=== PATIENT | female | born 1975 | race Caucasian/White ===

== ENCOUNTER 2016-09-24 03:56 | Inpatient (IN) | payer OTHER ==
[~2016-09-24] VITALS: Ht 165.1 cm; Wt 88.9 kg
[2016-09-24] MEDS ORDERED: BETAMET NA PHOS/AC(6 MG/ML) 5ML INJ IM SCH (04:30)
[2016-09-24] MEDS ORDERED: MAGNESIUM SULFATE 4 GM/100 ML 100 ML ONE (04:30)
[2016-09-24] MEDS ORDERED: MAGNESIUM SULFATE 4 GM/100 ML 100 ML IV ONE (04:30)
[2016-09-24] MEDS: LACTATED RINGER'S 1,000 ML IV SCH ×2 (04:36→14:27)
[2016-09-24] MEDS ORDERED: MAGNESIUM SULFATE 20 GM/500 ML 500 ML IV SCH ×2 (05:00→10:03)
--- NOTE | 2016-09-24 05:00 | RADRPT ---
PROCEDURE: Biophysical profile. CLINICAL INDICATION: Vaginal bleeding. TECHNIQUE: Multiple sonographic images of the pelvis were obtained with transabdominal technique. COMPARISON: No prior studies are available for comparison. FINDINGS: There is a single living intrauterine gestation with the fetus in a vertex position. The placenta i s posterior and fundal in location grade II to III. heart tones of 128 beats per minute are id entified. There is normal amniotic fluid volume with an MARIUM of 18.0 cm. breathing movements = 2 Gross body movements = 2 tone = 2 Qualitative AFV = 2 IMPRESSION: Biophysical profile 8 out of 8. .Augustine Mccall MD, MD Date Time Electronically viewed and signed by .Augustine Mccall MD, MD on 09/24/2016 05:00 .T/
--- NOTE | 2016-09-24 05:03 | RADRPT ---
PROCEDURE: Obstetrical ultrasound, limited. CLINICAL INDICATION: Pelvic pain. TECHNIQUE: Multiple sonographic images of the pelvis were obtained using transabdominal technique . Images were obtained with galaviz scale and color Doppler. The images were reviewed on a PACS works tation. COMPARISON: No prior studies are available for comparison. FINDINGS: There is a single living intrauterine gestation with the fetus in a vertex presentation. hear t tones of 139 beats per minute are identified. The placenta is posterior and fundal in location, g rade 2-3. There is normal amniotic fluid volume. There is no evidence of placenta previa or abrupt ion. Measurements were made in order to determine age. The results are as follows: BPD =7.95 cm HC =30.32 cm AC =30.64 cm FL =6.84 cm. Estimated gestational age of approximately 33 weeks and 6 days. The estimated date of delivery is 11/06/2016. The EFW = 2412 +/- 362 grams. Estimated weight percentage equals 23.3%. IMPRESSION: Single viable intrauterine gestation of approximately 33 weeks and 6 days, with an ultrasound [place] of 11/06/2016. .Augustine Mccall MD, MD Date Time Electronically viewed and signed by .Augustine Mccall MD, MD on 09/24/2016 05:02 .T/
[2016-09-24 05:44] VITALS: BP 116/69; PULSE 100; RESP 20; Ht 165.1 cm; Wt 88.9 kg
[2016-09-24] MEDS ORDERED: DEXTROSE 50% 50 ML SYRINGE IV PRN ×2 (06:30)
[2016-09-24] MEDS ORDERED: GLUCOSE GEL 15 GRAM TUBE BUCCAL PRN (06:30)
[2016-09-24] MEDS ORDERED: GLUCOSE GEL 15 GRAM TUBE PO PRN ×2 (06:30)
[2016-09-24] MEDS ORDERED: GLUCAGON 1 MG INJ IM PRN (06:30)
[2016-09-24 06:36] LABS: ADD SCAN DIFF NO
[2016-09-24 06:39] LABS: BASOPHILS % 0.3 % (0.0-2.0); EOSINOPHILS # 0.3 10^3/ul (0.0-0.5); EOSINOPHILS % 3.4 % (0.0-7.0); HEMATOCRIT 35.1 % (37.0-47.0); HEMOGLOBIN 11.4 g/dl (12.0-16.0); LYMPHOCYTES # 1.5 10^3/ul (0.8-2.9); LYMPHOCYTES % 16.9 % (15.0-51.0); MEAN CORPUSCULAR HEMOGLOBIN 27.1 pg (29.0-33.0); MEAN CORPUSCULAR HGB CONC 32.5 g/dl (32.0-37.0); MEAN CORPUSCULAR VOLUME 83.4 fl (82.0-101.0); MEAN PLATELET VOLUME 10.6 fl (7.4-10.4); MONOCYTE # 0.5 10^3/ul (0.3-0.9); NEUTROPHIL # 6.5 10^3/ul (1.6-7.5); NEUTROPHILS % 72.5 % (39.0-77.0); PLATELET COUNT 322 10^3/UL (140-415); RED BLOOD COUNT 4.21 10^6/ul (4.20-5.40); RED CELL DISTRIBUTION WIDTH 15.8 % (11.5-14.5)
--- NOTE | 2016-09-24 06:40 | HP ---
Date/Time of Note Date/Time of Note DATE: 09/24/16 TIME: 06:32 OB - History Hx of Present Free Text/Dictation Patient is at 35 weeks and 2 days gestation presents with vaginal bleeding and irregular contractions She is type II diabetic insulin-dependent Patient with history of placenta previa Patient received a course of betamethasone earlier in this Care: Good Care Obstetrical Complications: Other (type ll diabetes insulin-dependent) Medical Complications: None Past Family/Social History * Past Medical, Surgical, Family and Obstetric Histories reviewed from chart. OB Admission Exam Vital Signs Vital Signs Vital Signs Date Time Temp Pulse Resp B/P Pulse Ox O2 Delivery O2 Flow Rate FiO2 09/24/16 05:44 98.3 100 20 116/69 99 Room Air Physical Exam HEENT: WNL Heart: Rhythm Normal Abdomen: WNL Membranes: Intact Accelerations: Accelerations Present Decelerations: No Decelerations Varibility: Moderate Contractions on Admission: 6-10 Minutes Apart Last 72 hourBlood Glucose Bedside Glucose - 72 Hours Test 09/24/16 05:55 Bedside Glucose 88mg/dL (70-220) OB Assessment/Plan Reason for admission: vaginal bleeding Plan: Other Other plan: Magnesium sulfate OB ultrasound-indicating no further evidence of placenta previa Fasting and one hour postprandial Accu-Cheks sliding scale insulin ROGER FAULKNER Sep 24, 2016 06:40
[2016-09-24 06:54] LABS: INR 0.91; PROTIME 12.3 Sec (12.2-14.2)
[2016-09-24 06:55] LABS: PARTIAL THROMBOPLASTIN TIME 29.3 Sec (25.0-35.0)
--- NOTE | 2016-09-24 07:06 | TRIAGE ---
OB Triage Datetime Report Generated by CPN: 09/24/2016 07:05 Datetime: 09/24/2016 06:00 Assessment Type: Admission Assessment Vaginal Bleeding: Small (Annotations: PT NOTED VAGINAL BLEEDING ON 09/24/16 @ 0320) Maternal Assessment Level of Consciousness: Fully Conscious DTR's/Clonus: DTRs 2+; No Clonus Headache: Denies Blurred Vision: No Respiratory Effort: Unlabored; Regular Rhythm; Equal Expansion Breath Sounds, Left: Clear and Equal Breath Sounds, Right: Clear and Equal Nausea/Vomiting: Denies RUQ Epigastric Pain: Denies Lower Extremities Edema: None Degree: None Upper Extremities Edema: None Degree: None Facial Edema: None Fall Risk Assessment History of Falling: (0) No Secondary Diagnosis: (0) No Ambulatory Aid: (0) Bedrest/Nurse Assist IV Therapy: (20) Yes Gait: (0) Normal/Bedrest/Immobile Mental Status: (0) Oriented to Own Ability Fall Score: 20 Fall Risk Score Definition: No Risk: No action required Pain Assessment Pain Scale: 0 Pain Presence: None/Denies Pain Type: N/A Datetime: 09/24/2016 05:55 Bedside Blood Glucose: 88 Datetime: 09/24/2016 05:44 Stage of : Antepartum Datetime: 09/24/2016 05:29 Labor Evaluation Frequency: 0 Monitor Mode: External Duration (sec)2399: 0 Resting Tone [place]: Relaxed Contraction Comments: uterine irritiability noted. pt denies feeling cramping or uc's. Heart Rate FHR Baseline Rate: 125 Monitor Mode: External US Variability: Moderate 6-25 bpm Accelerations: 15X15 Decelerations: None Category: Category I Datetime: 09/24/2016 04:30 Stage of : OB Triage Assessment Type: Triage Time of Arrival: 09/24/2016 03:51 EGA: 35.2 Arrived By: Ambulatory Arrived From: Home Chief Complaint: vaginal bleeding Movement: Present Contractions: Denies/Absent Rupture of Membranes: Denies Vaginal Bleeding: Moderate Vaginal Discharge: Denies Recent Sexual Intercouse: Denies Abdominal Trauma: Not Applicable Patient Complaints: Other Time Provider Notified: 09/24/2016 04:18 Provider Notified: Мария Initial Plan: NST Maternal Assessment Level of Consciousness: Fully Conscious DTR's/Clonus: DTRs 2+; No Clonus Headache: Denies Blurred Vision: No Respiratory Effort: Unlabored Nausea/Vomiting: Denies RUQ Epigastric Pain: Denies Lower Extremities Edema: None Degree: None Upper Extremities Edema: None Degree: None Facial Edema: None Fall Risk Assessment History of Falling: (0) No Secondary Diagnosis: (0) No Ambulatory Aid: (0) Bedrest/Nurse Assist IV Therapy: (20) Yes Gait: (0) Normal/Bedrest/Immobile Mental Status: (0) Oriented to Own Ability Fall Score: 20 Fall Risk Score Definition: No Risk: No action required Monitor Mode: External Resting Tone [place]: Non Relaxed Contraction Comments: continuous uterine irritiability. pt states she does not feel any pressure o r tightness. Heart Rate FHR Baseline Rate: 125 Monitor Mode: External US Variability: Moderate 6-25 bpm Accelerations: 15X15 Decelerations: None Category: Category I Datetime: 09/24/2016 04:25 Vaginal Exam Membrane Status: Intact Datetime: 09/24/2016 04:18 Stage of : OB Triage
[2016-09-24 07:09] LABS: ALBUMIN 2.7 g/dl (3.3-4.9)
[2016-09-24 07:10] LABS: POTASSIUM 3.9 mmol/L (3.5-5.1)
[2016-09-24 07:12] LABS: ALBUMIN/GLOBULIN RATIO 0.77; BILIRUBIN,INDIRECT 0.7 mg/dl (0-1.1); BILIRUBIN,TOTAL 0.7 mg/dl (0.2-1.3); CREATININE 0.56 mg/dl (0.44-1.00); TOTAL PROTEIN 6.2 g/dl (6.1-8.1)
[2016-09-24 07:13] LABS: CALCIUM 8.3 mg/dl (8.4-10.2)
[2016-09-24] MEDS ORDERED: ACCU-CHEK XX SCH ×4 (07:30→19:35)
[2016-09-24] MEDS: DEXTROSE 5%-LR 1,000 ML IV SCH ×2 (10:24→16:41)
[2016-09-24] MEDS ORDERED: PREN1TAB31 PO (11:33)
[2016-09-24] MEDS ORDERED: LEVO100T87 PO (11:35)
[2016-09-24] MEDS ORDERED: FERR325C PO (11:35)
[2016-09-24] MEDS ORDERED: NOVO7030 SC ×2 (11:40)
[2016-09-24] MEDS ORDERED: INSU100C SQ (11:42)
[2016-09-24 11:45] LABS: ADD UMIC NO; URINE BILIRUBIN (Dip) NEGATIVE (NEGATIVE); URINE BLOOD (Dip) NEGATIVE (NEGATIVE); URINE COLOR LT. YELLOW (YELLOW); URINE GLUCOSE (Dip) NEGATIVE (NEGATIVE); URINE KETONES (Dip) 40 (NEGATIVE); URINE LEUKOCYTE ESTERASE (Dip) NEGATIVE (NEGATIVE); URINE NITRITE (Dip) NEGATIVE (NEGATIVE); URINE TOTAL PROTEIN (Dip) NEGATIVE (NEGATIVE); URINE UROBILINOGEN (Dip) 0.2 E.U./dL (0.1-1.0)
[2016-09-24 12:32] LABS: BARBITURATES Negative (NEGATIVE); BENZODIAZEPINES Negative (NEGATIVE); CANNABINOIDS Negative (NEGATIVE); COCAINE Negative (NEGATIVE); OPIATES Negative (NEGATIVE)
[2016-09-24] MEDS ORDERED: INSULIN ASPART [NOVOLOG] 3 ML PEN SC SCH ×3 (13:30→17:35)
[2016-09-24] MEDS ORDERED: CEFAZOLIN 2 GM/50 ML (PMX) 50 ML IVPB ONE ×2 (13:48→14:00)
[2016-09-24] MEDS ORDERED: CITRIC ACID/NA CIT (1 MEQ/ML POSYG) PO ONE (14:30)
[2016-09-24] MEDS ORDERED: CITRIC ACID/NA CITRATE 30 ML CUP PO ONE ×2 (14:30→15:30)
[2016-09-24] MEDS ORDERED: morphine SULFATE/PF (10 MG/10 ML) INJ ONE (14:34)
[2016-09-24] MEDS ORDERED: ONDANSETRON 4 MG INJ ONE (14:43)
[2016-09-24] MEDS ORDERED: PHENYLephrine (100 MCG/ML) 5ML SYG ONE ×3 (14:55→15:18)
[2016-09-24] MEDS ORDERED: MIDAZOLAM 1 MG/ML 2 ML INJ ONE (15:04)
[2016-09-24] MEDS ORDERED: LACTATED RINGER'S 1,000 ML IV ONE (15:06)
[2016-09-24] MEDS ORDERED: OXYTOCIN 10 UNIT INJ ONE (15:22)
[2016-09-24] MEDS ORDERED: DIPHENHYDRAMINE 50 MG INJ IV PRN ×3 (15:30→22:00)
[2016-09-24] MEDS ORDERED: EPHEDrine SULFATE 50 MG/5 ML SYG IV PRN (15:30)
[2016-09-24] MEDS ORDERED: NALOXONE (0.4 MG/ML) INJ IV PRN (15:30)
[2016-09-24] MEDS ORDERED: ZOLPIDEM 5 MG TAB PO PRN (15:30)
[2016-09-24] MEDS ORDERED: KETOROLAC 30 MG INJ IV PRN (15:30)
[2016-09-24] MEDS ORDERED: MIDAZOLAM 1 MG/ML 2 ML INJ IV PRN (15:30)
[2016-09-24] MEDS ORDERED: MEPERIDINE 25 MG INJ IV PRN (15:30)
[2016-09-24] MEDS ORDERED: HYDROmorphONE 1 MG/ML SYG IV PRN ×2 (15:30)
[2016-09-24] MEDS ORDERED: ONDANSETRON 4 MG INJ IV PRN ×2 (15:30)
--- NOTE | 2016-09-24 16:38 | OPR ---
DATE OF OPERATION: 09/24/2016 PREOPERATIVE DIAGNOSES: 1. Intrauterine at 35 weeks 2 days, low lying placenta, active bleeding, labor. 2, Desires permanent sterilization. POSTOPERATIVE DIAGNOSES: 1. Intrauterine at 35 weeks 2 days, low lying placenta, active bleeding, labor. 2. Status post delivery of a viable 2655 grams or 5 pounds 14 ounce female with Apgars of 9 and 9. OPERATION PERFORMED: Primary low transverse section with bilateral tubal ligation. ANESTHESIA: Desires permanent sterilization. ESTIMATED BLOOD LOSS: 700 mL. COMPLICATIONS: None. SURGEON: Jonathan PHONE REPRESENTATIVE: Dr. Bautista. ANESTHESIA: Dr. Joel PROCEDURE: The patient was brought to the operating room, placed on the operating room table and se t up for a spinal block. She was then prepped and draped in the usual sterile fashion after placeme nt of a Drake catheter. A Pfannenstiel incision was made using a knife through the skin and subcuta neous tissue down to the level of the fascia. Fascia was incised and extended bilaterally using Bov ie cautery. Superior edge of the fascia was grasped with Radhika clamps and the rectus muscles were from the overlying fascia using blunt dissection and Bovie cautery. This was repeated at the lower edge of the incision as well. The rectus muscles were in midline with the surge on's fingers and the anterior peritoneum was bluntly entered. The incision was stretched open with hands. Bladder blade and Dale retractor were placed in the incision and the bladder flap was developed using Metzenbaum scissors and blunt dissection. The lower uterine segment was incised wit h a knife and then entered with the surgeon's fingers and then stretched open with hands and then cu t some with bandage scissors. Blood clots present in the lower uterine segment, very large blood ve ssels along the entire length of the incision. Baby was oblique lie. Sac was ruptured, the head w as in the right, not quite transverse position. The head was brought down to the vertex with gentle fundal pressure was delivered and then the rest of the baby was easily delivered. The cord was patience malia clamped and cut and the baby was brought over to the warmer with the respiratory team in attenda nce. Placenta was manually extracted. The uterus was externalized, wrapped in a moist lap and a dr y lap was used to clean the interior of the uterus. There is brisk bleeding noted at the left of th e incision and this was held with hands until the stitch could be repaired. A stitch was placed and immediate hemostasis noted. Incision was closed using #1 chromic in a running locking stitch in 2 layers with excellent tissue approximation and hemostasis. A small amount of light cautery was nece ssary for the bladder flap. A piece of Fibrillar was placed in that fold after irrigating the pelvi s. Tubal ligation was performed. The tubes were at the end of the long pedicle and tube; therefore , a bilateral salpingectomy was performed, doubly ligating with 0 plain suture, cutting off the end of the tube and then cauterizing the ends. There was no bleeding noted at the end of the procedure . Tubes and ovaries otherwise looked normal. Uterus was replaced back into the abdomen. Both tuba l procedures were examined again and noted to be dry. The uterine incision was examined again and n oted to be dry. The anterior peritoneum was then closed using 2-0 chromic in a running stitch. The rectus muscles were brought back together at midline with 2 interrupted [id number] sutures of the same material. The underbelly of the fascia was examined and a small amount of light cautery ap plied where needed for hemostasis. The fascia was then closed using 0 Vicryl suture in a running st itch from each lateral edge to midline with overlap at the midline. Subcutaneous tissue was irrigat ed well, cautery applied where needed for hemostasis. The subcutaneous layer was closed using 2-0 c hromic in a running stitch in 2 layers, and the skin was then closed with 3-0 Monocryl in a subcutic ular stitch. Steri-Strips with Mastisol were placed and a pressure dressing was applied overall. T he patient tolerated the procedure very well and was brought to recovery room in excellent condition . Tubal specimen sent to pathology for confirmation of the procedure. The baby went to recovery ro with her parents. Dictated By: KRUPA AVALOS/WOJCIECH Conf#: [id number] DID#: [id number]
[2016-09-24] MEDS ORDERED: LACTATED RINGER'S 1,000 ML IV SCH (17:08)
[2016-09-24] MEDS: INSULIN ASPART [NOVOLOG] 3 ML PEN SC SCH (17:11)
[2016-09-24] MEDS ORDERED: METHYLERGONOVINE 0.2 MG INJ IM PRN (17:30)
[2016-09-24] MEDS ORDERED: MISOPROSTOL 200 MCG TAB PR PRN (17:30)
[2016-09-24] MEDS ORDERED: CARBOPROST 250 MCG INJ IM PRN (17:30)
[2016-09-24] MEDS ORDERED: LANOLIN 7 GM TUBE TOP PRN (17:30)
[2016-09-24] MEDS ORDERED: OXYCODONE/ACETAMINOPHEN (5/325) TAB PO PRN ×2 (17:30)
[2016-09-24] MEDS ORDERED: OXYTOCIN 30 UNITS/LR 500 ML IV PRN (17:30)
[2016-09-24] MEDS: metFORMIN 500 MG TAB PO SCH (17:35)
[2016-09-24] MEDS: ACCU-CHEK XX SCH (19:35)
[2016-09-24] MEDS ORDERED: INSULIN ISOPHANE (NPH) 10 ML INJ SC SCH (21:00)
[2016-09-24 22:30] VITALS: BP 103/58; PULSE 101; RESP 18
[2016-09-25] MEDS ORDERED: ACCU-CHEK XX SCH (02:00)
[2016-09-25 03:30] VITALS: BP 105/57; PULSE 92; RESP 18
[2016-09-25] MEDS: LEVOTHYROXINE 100 MCG TAB PO SCH (06:27)
[2016-09-25] MEDS ORDERED: LEVOTHYROXINE 100 MCG TAB PO SCH (07:00)
[2016-09-25] MEDS ORDERED: INSULIN ISOPHANE (NPH) 10 ML INJ SC SCH (07:05)
[2016-09-25 07:09] LABS: ADD SCAN DIFF NO
[2016-09-25 07:12] LABS: BASOPHILS % 0.2 % (0.0-2.0); HEMATOCRIT 27.5 % (37.0-47.0); HEMOGLOBIN 8.6 g/dl (12.0-16.0); LYMPHOCYTES # 1.5 10^3/ul (0.8-2.9); LYMPHOCYTES % 11.4 % (15.0-51.0); MEAN CORPUSCULAR HEMOGLOBIN 26.8 pg (29.0-33.0); MEAN CORPUSCULAR HGB CONC 31.3 g/dl (32.0-37.0); MEAN CORPUSCULAR VOLUME 85.7 fl (82.0-101.0); MEAN PLATELET VOLUME 10.7 fl (7.4-10.4); MONOCYTE # 1.1 10^3/ul (0.3-0.9); MONOCYTES % 8.2 % (0.0-11.0); NEUTROPHIL # 10.4 10^3/ul (1.6-7.5); NEUTROPHILS % 79.4 % (39.0-77.0); PLATELET COUNT 284 10^3/UL (140-415); RED BLOOD COUNT 3.21 10^6/ul (4.20-5.40); RED CELL DISTRIBUTION WIDTH 15.9 % (11.5-14.5); WHITE BLOOD COUNT 13.1 10^3/ul (4.8-10.8)
[2016-09-25] MEDS ORDERED: INSULIN ASPART [NOVOLOG] 3 ML PEN SC SCH (07:35)
[2016-09-25] MEDS: ACCU-CHEK XX SCH ×4 (08:27→20:45)
[2016-09-25] MEDS: metFORMIN 500 MG TAB PO SCH (08:29)
[2016-09-25 08:30] VITALS: BP 80/48; PULSE 90; RESP 17
[2016-09-25 12:30] VITALS: BP 82/45; PULSE 92; RESP 18
[2016-09-25 16:00] VITALS: BP 92/53; PULSE 97; RESP 16
[2016-09-25] MEDS ORDERED: DEXTROSE 50% 50 ML SYRINGE IV PRN ×2 (17:30)
[2016-09-25] MEDS ORDERED: GLUCOSE GEL 15 GRAM TUBE BUCCAL PRN (17:30)
[2016-09-25] MEDS ORDERED: GLUCAGON 1 MG INJ IM PRN (17:30)
[2016-09-25] MEDS ORDERED: GLUCOSE GEL 15 GRAM TUBE PO PRN ×2 (17:30)
[2016-09-25] MEDS ORDERED: INSULIN LISPRO 100 UNIT/ML VIAL SC SCH (17:35)
--- NOTE | 2016-09-25 18:10 | CONS ---
DATE OF ADMISSION: 09/24/2016 DATE OF CONSULTATION: 09/25/2016 REASON FOR CONSULTATION: Diabetes. HISTORY OF PRESENT ILLNESS: This is a 40-year-old female admitted to the hospital with placenta pre via, active bleeding for delivery. The patient underwent section and is presently postoper ative status. Both she and her female are doing fine. She underwent primary lower transver se section and bilateral tubal ligation. She is awake, alert, tolerating diet without any distress. Due to the placenta previa, the patient received a course of steroids earlier during this and it is presently expected that her sugars will remain high over the next 4 days. PAST MEDICAL HISTORY: 1. Type 2 diabetes. 2. Hypertension. 3. Hypothyroidism. 4. Metabolic syndrome. 5. Potentially anemia. 6. Placenta previa. PAST SURGICAL HISTORY: As above. SOCIAL HISTORY: No active tobacco or alcohol. ALLERGIES: NO KNOWN DRUG ALLERGIES. HOME MEDICATIONS: 1. Humalog 20 units morning, afternoon, 12 at bedtime. 2. NPH 40 morning, 16 at bedtime. 3. Synthroid dose, I believe 100 daily. REVIEW OF SYSTEMS: NEUROLOGIC: No headache. No loss of speech or vision. CARDIOVASCULAR: No chest pain, no dyspnea, no edema. LUNGS: No cough, no wheezing, no fever. ABDOMEN: Mild pain, no nausea, no vomiting, no diarrhea. GENITOURINARY: Potential hematuria, no dysuria. MUSCULOSKELETAL: Mild to moderate abdominal pain. EXTREMITIES: No rash, no itching, no edema. HEMATOLOGIC: No hematochezia, melena, hematuria. CONSTITUTIONAL: No fevers, no chills, no weight loss that I am aware of. PSYCHIATRY: The patient has a stable mood without significant agitation, anxiety, depression. PHYSICAL EXAMINATION: HEENT: Extraocular movements appear to be intact. No pallor, no icterus, no adenopathy, no carotid bruits, no JVD. CARDIOVASCULAR: S1, S2 regular. No murmur or rub appreciated. LUNGS: Clear to auscultation bilaterally. ABDOMEN: Bowel sounds are diminished, mild tender. No rigidity, rebound, guarding. EXTREMITIES: With maybe 1+ edema. LABORATORY DATA: CMP unremarkable except for elevated blood sugars. Alkaline phosphatase of 216, a lbumin 2.7. INR 0.9. White cell count of 13, hemoglobin and hematocrit of 8 and 27, MCV 85, platel ets of 280. Urine tox screen unremarkable. Vital signs stable. Blood pressure a little low. ASSESSMENT AND PLAN: 1. Type 2 diabetes, stable, adjust insulin. Will hold oral agents for now. 2. Potential secondary to diabetes. 3. Postop day 1 section with bilateral tubal ligation. 4. Postop day 1 delivery of female child. 5. Hypothyroidism. 6. Hypertension. 7. Anemia. 8. Leukocytosis. PLAN: 1. Continue to monitor blood sugars at present location. Will change to moderate Accu-Cheks for co verage. Anticipate her sugars being more normalized in about 48 hours. Continue diabetic diet. Al bermeo is on insulin and Accu-Cheks at home. Would not need to change any therapy. 2. In terms of hypothyroidism, her treatment is stable. 3. In terms of anemia, it should stabilize with time. 4. In terms of her low blood pressure, but appears asymptomatic. One could check I's and O's every shift as needed. We will follow as needed. Dictated By: JOHNSON ARMENDARIZ MD AC/NTS Conf#: [id number] DID#: [id number] CC: DARYA ZULUAGA MD;*EndCC*
[2016-09-25] MEDS: INSULIN ASPART [NOVOLOG] 3 ML PEN SC SCH ×3 (19:01→21:28)
[2016-09-25 19:50] VITALS: BP 109/64; PULSE 101; RESP 18
[2016-09-25] MEDS: NPH, HUMAN INSULIN ISOPHANE 3ML VIAL SC SCH (21:26)
[2016-09-25] MEDS: IBUPROFEN 800 MG TAB PO SCH (22:01)
[2016-09-26] MEDS ORDERED: ACCU-CHEK XX SCH (02:00)
[2016-09-26 04:00] VITALS: BP 99/47; PULSE 76; RESP 18
[2016-09-26] MEDS: IBUPROFEN 800 MG TAB PO SCH ×3 (05:32→21:43)
[2016-09-26] MEDS: LEVOTHYROXINE 100 MCG TAB PO SCH (05:33)
[2016-09-26] MEDS: ACCU-CHEK XX SCH ×4 (07:30→20:05)
[2016-09-26 08:01] VITALS: BP 102/66; PULSE 88; RESP 20
[2016-09-26] MEDS: INSULIN ASPART [NOVOLOG] 3 ML PEN SC SCH ×7 (08:30→21:12)
[2016-09-26] MEDS: NPH, HUMAN INSULIN ISOPHANE 3ML VIAL SC SCH (09:25)
--- NOTE | 2016-09-26 11:39 | CONS ---
Date/Time of Note Date/Time of Note DATE: 09/26/16 TIME: 11:33 Consult Date/Type/Reason Admit Date/Time Sep 24, 2016 at 04:40 Initial Consult Date Subjective No acute events overnight. Objective Vital Signs Date Time Temp Pulse Resp B/P Pulse Ox O2 Delivery O2 Flow Rate FiO2 09/26/16 08:01 98.1 88 20 102/66 Room Air 09/25/16 22:30 98 21 Intake and Output 09/25/16 09/25/16 09/26/16 15:00 23:00 07:00 Intake Total 750 ml 200 ml 240 ml Output Total 3100 ml 880 ml Balance -2350 ml -680 ml 240 ml Exam PHYSICAL EXAMINATION: HEENT: Extraocular movements appear to be intact. No pallor, no icterus, no adenopathy, no carotid bruits, no JVD. CARDIOVASCULAR: S1, S2 regular. No murmur or rub appreciated. LUNGS: Clear to auscultation bilaterally. ABDOMEN: Bowel sounds are diminished, mild tender. No rigidity, rebound, guarding. EXTREMITIES: trace edema. Results/Medications Result Diagram: 09/25/16 0623 09/24/16 0630 Results 24 hrs Laboratory Tests Test 09/25/16 14:36 09/25/16 18:53 09/25/16 20:47 09/26/16 02:28 Bedside Glucose 232 H 167 236 H 202 Test 09/26/16 07:45 09/26/16 11:06 Bedside Glucose 164 259 H Medications Current Medications Levothyroxine Sodium (Synthroid) 100 mcg DAILY@06 PO Last administered on 05:33; Admin Dose 100 MCG; Start 09/25/16 at 06:00 Miscellaneous Information (* Miscellaneous Pharmacy Order) Duramorph: 0.2 mg Spi... GIVEN XX ; Start 09/24/16 at 15:30 Oxycodone/ Acetaminophen (Percocet (5/ 325)) 1 tab Q4H PRN PO PAIN LEVEL 4-6; Start 09/24/16 at 17:30 Oxycodone/ Acetaminophen (Percocet (5/ 325)) 2 tab Q4H PRN PO PAIN LEVEL 7-10; Start 09/24/16 at 17:30 Ibuprofen (Motrin) 800 mg Q8 PO Last administered on 09/26/16 05:32; Admin Dose 800 MG; Start 09/25/16 at 22:00 Simethicone (Mylicon) 160 mg Q8H PRN PO DISTENSION/GAS/BLOATING Last administered on 09/26/16 09:27; Admin Dose 160 MG; Start 09/24/16 at 17:30 Diphtheria/ Tetanus/Acell Pertussis 0.5 ml 0.5 ml ONCE ONCE IM* ; Start at 09:00; Stop 09/27/16 at 09:01 Oxytocin/Lactated Ringer's 500 ml @ 0 mls/hr ONCE PRN IV For Hemorrhage Management; Start 09/24/16 at 17:30 Methylergonovine Maleate (Methergine) 0.2 mg ONCE PRN IM VAGINAL BLEEDING; Start 09/24/16 at 17:30 Carboprost Tromethamine (Hemabate) 250 mcg ONCE PRN IM VAGINAL BLEEDING; Start 09/24/16 at 17:30 Misoprostol (Cytotec) 1,000 mcg ONCE PRN MA VAGINAL BLEEDING; Start 09/24/16 at 17:30 Diagnostic Test (Pha) (Accu-Chek) 1 ea FBSPP XX Last administered on 09/25/16 20:45; Admin Dose 1 EA; Start 09/24/16 at 19:35 Diphenhydramine HCl (Benadryl) 25 mg Q6H PRN IV ALLERGIC REACTION; Start at 22:00 Diagnostic Test (Pha) (Accu-Chek) 1 ea 02 XX Last administered on 09/26/16 02: 49; Admin Dose 1 EA; Start 09/26/16 at 02:00 Miscellaneous Information 1 ea NOTE XX ; Start 09/25/16 at 17:30 Glucose (Glutose) 15 gm Q15M PRN PO DECREASED GLUCOSE; Start 09/25/16 at 17:30 Glucose (Glutose) 22.5 gm Q15M PRN PO DECREASED GLUCOSE; Start 09/25/16 at 17: 30 Dextrose (D50w Syringe) 25 ml Q15M PRN IV DECREASED GLUCOSE; Start 09/25/16 at 17:30 Dextrose (D50w Syringe) 50 ml Q15M PRN IV DECREASED GLUCOSE; Start 09/25/16 at 17:30 Glucagon (Glucagen) 1 mg Q15M PRN IM DECREASED GLUCOSE; Start 09/25/16 at 17:30 Glucose (Glutose) 15 gm Q15M PRN BUCCAL DECREASED GLUCOSE; Start 09/25/16 at 17 :30 Insulin Glargine (Lantus) 18 unit DAILY@20 SC ; Start 09/26/16 at 20:00 Assessment/Plan Chief Complaint/Hosp Course ASSESSMENT AND PLAN: 1. Type 2 diabetes- FS still elevated at times - per discussion with DM educator, will continue ISS, aspart. -will d/c NPH, add lantus Qday and restart home metformin BID, monitor FS - Continue diabetic diet. 2. Postop day 1 section with bilateral tubal ligation - post op care per primary team 3. Postop day 1 delivery of female child - see # 2 5. Hypothyroidism - treatment is stable. 6. Hypertension - monitor 7. Anemia - monitor Will continue to follow. Problems: CAROLE FALCON Sep 26, 2016 11:39
[2016-09-26] MEDS ORDERED: HYPOGLYCEMIA PROTOCOL when Glucose is <70 mg/dL or symptomatic <90 mg/dL. XX ONE (12:00)
[2016-09-26] MEDS ORDERED: Discontinue Glyburide, Glipizide, and/or Glimepiride prior to starting Insulin XX ONE (12:00)
[2016-09-26 13:07] VITALS: BP 118/78; PULSE 80; RESP 20
[2016-09-26 16:42] VITALS: BP 114/61; PULSE 96; RESP 20
[2016-09-26] MEDS: metFORMIN 500 MG TAB PO SCH (17:49)
[2016-09-26 20:00] VITALS: BP 108/67; PULSE 77; RESP 18
[2016-09-26] MEDS ORDERED: INSULIN GLARGINE [LANtus] 3 ML PEN SC SCH (20:00)
[2016-09-27] MEDS ORDERED: ACCU-CHEK XX SCH (02:00)
[2016-09-27 03:30] VITALS: BP 112/68; PULSE 74; RESP 17
[2016-09-27] MEDS: IBUPROFEN 800 MG TAB PO SCH ×2 (05:31→14:00)
[2016-09-27] MEDS: LEVOTHYROXINE 100 MCG TAB PO SCH (05:31)
[2016-09-27 07:30] VITALS: BP 108/67; PULSE 73; RESP 19
[2016-09-27] MEDS: ACCU-CHEK XX SCH ×3 (07:30→15:00)
[2016-09-27] MEDS: INSULIN ASPART [NOVOLOG] 3 ML PEN SC SCH ×4 (08:04→12:49)
[2016-09-27] MEDS ORDERED: DIPHTH/TET/ACEL PERTUSS (ADULT) 0.5 ML VIAL IM* ONE (09:00)
[2016-09-27] MEDS: metFORMIN 500 MG TAB PO SCH (09:18)
--- NOTE | 2016-09-27 13:58 | CONS ---
Date/Time of Note Date/Time of Note DATE: 09/27/16 TIME: 13:54 Consult Date/Type/Reason Admit Date/Time Sep 24, 2016 at 04:40 Subjective No acute events overnight, sugars improved. Objective Vital Signs Date Time Temp Pulse Resp B/P Pulse Ox O2 Delivery O2 Flow Rate FiO2 09/27/16 07:30 97.9 73 19 108/67 Room Air 09/25/16 22:30 98 21 Exam HEENT: Extraocular movements appear to be intact. No pallor, no icterus, no adenopathy, no carotid bruits, no JVD. CARDIOVASCULAR: S1, S2 regular. No murmur or rub appreciated. LUNGS: Clear to auscultation bilaterally. ABDOMEN: Bowel sounds are diminished, mild tender. No rigidity, rebound, guarding. EXTREMITIES: trace edema. Results/Medications Result Diagram: 09/25/16 0623 09/24/16 0630 Results 24 hrs Laboratory Tests Test 09/26/16 14:59 09/26/16 17:14 09/26/16 20:05 09/26/16 21:09 Bedside Glucose 257 H 224 H 285 H 277 H Test 09/27/16 01:59 09/27/16 07:58 09/27/16 11:19 09/27/16 12:46 Bedside Glucose 146 160 178 180 Medications Current Medications Levothyroxine Sodium (Synthroid) 100 mcg DAILY@06 PO Last administered on 05:31; Admin Dose 100 MCG; Start 09/25/16 at 06:00 Miscellaneous Information (* Miscellaneous Pharmacy Order) Duramorph: 0.2 mg Spi... GIVEN XX ; Start 09/24/16 at 15:30 Oxycodone/ Acetaminophen (Percocet (5/ 325)) 1 tab Q4H PRN PO PAIN LEVEL 4-6; Start 09/24/16 at 17:30 Oxycodone/ Acetaminophen (Percocet (5/ 325)) 2 tab Q4H PRN PO PAIN LEVEL 7-10; Start 09/24/16 at 17:30 Ibuprofen (Motrin) 800 mg Q8 PO Last administered on 09/27/16 05:31; Admin Dose 800 MG; Start 09/25/16 at 22:00 Simethicone 160 mg 160 mg Q8H PRN PO DISTENSION/GAS/BLOATING Last administered on 09/26/16 09:27; Admin Dose 160 MG; Start 09/24/16 at 17:30 Oxytocin/Lactated Ringer's 500 ml @ 0 mls/hr ONCE PRN IV For Hemorrhage Management; Start 09/24/16 at 17:30 Methylergonovine Maleate (Methergine) 0.2 mg ONCE PRN IM VAGINAL BLEEDING; Start 09/24/16 at 17:30 Carboprost Tromethamine (Hemabate) 250 mcg ONCE PRN IM VAGINAL BLEEDING; Start 09/24/16 at 17:30 Misoprostol (Cytotec) 1,000 mcg ONCE PRN SD VAGINAL BLEEDING; Start 09/24/16 at 17:30 Diagnostic Test (Pha) (Accu-Chek) 1 ea FBSPP XX Last administered on 09/26/16 20:05; Admin Dose 1 EA; Start 09/24/16 at 19:35 Diphenhydramine HCl (Benadryl) 25 mg Q6H PRN IV ALLERGIC REACTION; Start at 22:00 Miscellaneous Information 1 ea NOTE XX ; Start 09/25/16 at 17:30 Glucose (Glutose) 15 gm Q15M PRN PO DECREASED GLUCOSE; Start 09/25/16 at 17:30 Glucose (Glutose) 22.5 gm Q15M PRN PO DECREASED GLUCOSE; Start 09/25/16 at 17: 30 Dextrose (D50w Syringe) 25 ml Q15M PRN IV DECREASED GLUCOSE; Start 09/25/16 at 17:30 Dextrose (D50w Syringe) 50 ml Q15M PRN IV DECREASED GLUCOSE; Start 09/25/16 at 17:30 Glucagon (Glucagen) 1 mg Q15M PRN IM DECREASED GLUCOSE; Start 09/25/16 at 17:30 Glucose (Glutose) 15 gm Q15M PRN BUCCAL DECREASED GLUCOSE; Start 09/25/16 at 17 :30 Insulin Glargine (Lantus) 18 unit DAILY@20 SC Last administered on 09/26/16 20 :07; Admin Dose 18 UNIT; Start 09/26/16 at 20:00 Diagnostic Test (Pha) (Accu-Chek) 1 ea 02 XX Last administered on 09/27/16 02: 34; Admin Dose 1 EA; Start 09/27/16 at 02:00 Assessment/Plan Chief Complaint/Hosp Course ASSESSMENT AND PLAN: 1. Type 2 diabetes- FS improved after adjustment yesterday. - if pt being d/c home, recommend Aspart 7 units w/ meals, Lantus 18 units QHS, and 500 mg metformin PO BID, monitor FS - Continue diabetic diet. 2. Postop day 3 section with bilateral tubal ligation - post op care per primary team 3. Postop day 3 delivery of female child - see # 2 5. Hypothyroidism - treatment is stable. 6. Hypertension - monitor 7. Anemia - monitor Will continue to follow. Problems: CAROLE FALCON Sep 27, 2016 13:58
== END 2016-09-27 17:24 | disposition home or self-care (01) | DRG 765 ==
LOC: OBT 03:56 → L-D 03:56 → OBG 04:40 → OBT 04:40 → L-D 13:03 → PP1 22:15
PROVIDERS: ADMIT Obstetrics & Gynecology; ATTEND Obstetrics & Gynecology
PROC: 0UB70ZZ Excision of Bilateral Fallopian Tubes, Open Approach (ICD-10-PCS; 2016-09-24)
PROC: 4A1HX4Z Monitoring of Products of Conception, Cardiac Electrical Activity, External Approach (ICD-10-PCS; 2016-09-24)
PROC: 10D00Z1 Extraction of Products of Conception, Low, Open Approach (ICD-10-PCS; principal; 2016-09-24 15:30)
PROC: 3E0234Z Introduction of Serum, Toxoid and Vaccine into Muscle, Percutaneous Approach (ICD-10-PCS; 2016-09-27)
DX: O60.14X0 Preterm labor third trimester with preterm delivery third trimester, not applicable or unspecified (principal); O24.12 Pre-existing type 2 diabetes mellitus, in childbirth; O44.13 Complete placenta previa with hemorrhage, third trimester; O10.92 Unspecified pre-existing hypertension complicating childbirth; O99.13 Other diseases of the blood and blood-forming organs and certain disorders involving the immune mechanism complicating the puerperium; E11.9 Type 2 diabetes mellitus without complications; D72.829 Elevated white blood cell count, unspecified; O99.284 Endocrine, nutritional and metabolic diseases complicating childbirth; E03.9 Hypothyroidism, unspecified; O90.81 Anemia of the puerperium; Z79.4 Long term (current) use of insulin; Z30.2 Encounter for sterilization; Z23 Encounter for immunization; Z3A.35 35 weeks gestation of pregnancy; Z37.0 Single live birth
CPT/HCPCS: 36415; 76815; 76818; 80053; 80307; 81003; 82962; 83735; 85025; 85610; 85730; 86592; 86850; 86900; 86901; 86920; 87086; 88302; 90715; 94760; 99464; G0463; J0690; J0702; J1200; J1815; J2250; J2274; J2370; J2405; J2590; J3475; J7120; J7121